=== PATIENT | female | born 1975 | race Caucasian/White ===

== ENCOUNTER → 2020-02-23 09:30 | Outpatient (CLI) | payer OTHER, SELFPAY ==
--- NOTE | ~2020-02-23 | XR_ITS ---
EXAMINATION: XR finger 4th LT min 2V DATE: 02/23/2020 09:49 INDICATION: Left hand fourth digit pain. TECHNIQUE: 4 views of left hand fourth digit were obtained. COMPARISON: None. FINDINGS: Bone alignment is normal. No fracture. Joint spaces are well maintained. IMPRESSION: 1. No fracture. Reviewed, dictated and finalized at location A. IMPRESSION: 1. No fracture.
== END ==
PROVIDERS: PCP Nurse Practitioner Family; Visit Provider Nurse Practitioner Family
DX: M79.645 Pain in left finger(s) (principal)
CPT/HCPCS: 73140

== ENCOUNTER 2020-03-19 11:21 | Outpatient (CLI) | payer OTHER, SELFPAY ==
--- NOTE | ~2020-03-19 | XR_ITS ---
XR lumbar spine 6V w bending 03/19/2020 11:49 Indication: Low back pain Procedure: 7 views lumbar spine Comparison: 02/23/2005 Findings: Vertebral body and disc heights are preserved. No fracture, subluxation or dislocation. No evidence for spondylolisthesis. No significant alteration of alignment with flexion/extension. There are cholecystectomy clips. Sacral foramen are symmetric. Pedicles are intact. No evidence for spondyl olysis. Impression: 1: No significant abnormality of the lumbar spine. Reviewed, dictated and finalized at location A. Impression: 1: No significant abnormality of the lumbar spine.
== END 2020-03-19 11:22 | disposition home or self-care (01) ==
LOC: ANHIMG 11:26
PROVIDERS: PCP Internal Medicine; Visit Provider Physician Assistant
DX: M54.9 Dorsalgia, unspecified (principal)
CPT/HCPCS: 72114

== ENCOUNTER 2022-08-01 08:50 | Outpatient (CLI) | payer OTHER, SELFPAY ==
--- NOTE | ~2022-08-01 | MR_ITS ---
EXAMINATION: MR knee LT wo con DATE: 08/01/2022 09:17 INDICATION: Left knee pain TECHNIQUE: Magnetic resonance imaging (MRI) of the left knee was performed without intravenous contra st. Sequences included coronal PD-weighted FSE, coronal PD-weighted FS FSE, sagittal T2-weighted FSE , sagittal PD-weighted FS FSE and axial PD weighted fat saturated FSE. COMPARISON: None. FINDINGS: Medial compartment: Medial meniscus is normal. Shallow chondral ulceration with mild partial-thickness cartilage loss and chondral surface regularity along the anterior to central weightbearing medial femoral condyle. Cart ilage along the medial tibial plateau appears relatively preserved. Lateral compartment: Lateral meniscus is normal. Articular cartilage is normal. Patellofemoral compartment: Articular cartilage is normal. Ligaments and tendons: Anterior and posterior cruciate ligaments are normal. The medial collateral ligament and fibular tu ateral ligament complex are normal. The extensor mechanism is normal. The visualized medial and later al hamstring tendons as well as the iliotibial band are normal. Fluid: Physiologic amount of fluid in the joint space. No loose osteochondral bodies identified. Osseous/other: Normal marrow signal. No fracture or pathologic marrow replacing process. IMPRESSION: 1. 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 Reviewed, dictated and finalized at location A.
== END 2022-08-01 08:51 ==
LOC: MICIMG 08:50
PROVIDERS: PCP Internal Medicine; Visit Provider Orthopaedic Surgery
DX: M17.12 Unilateral primary osteoarthritis, left knee (principal); M94.262 Chondromalacia, left knee
CPT/HCPCS: 73721